=== PATIENT | female | born 2000 | race Caucasian/White ===

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

== ENCOUNTER → 2020-04-04 | Outpatient (CLI) | payer OTHER | LOC: OD 13:28 | PROVIDERS: ATTEND Pediatrics Pediatric Cardiology | DX: R00.2 Palpitations (principal); R42 Dizziness and giddiness | CPT/HCPCS: 94760 ==